=== PATIENT | female | born 1955 | race African-American/Black ===

== ENCOUNTER → 2017-04-08 | Outpatient (CLI) | payer OTHER ==
[2017-04-08 12:31] LABS: Basophils # (auto) 0 uL; Basophils % (auto) 0.5 % (0.0-2.0); CONDITION Y; Eosinophils # (auto) 0.1 uL; Eosinophils % (auto) 1.6 % (0.0-7.0); Hematocrit 43.3 % (36.0-46.0); Hemoglobin 14.4 g/dL (12.2-16.2); Lymphocytes # (auto) 2.3 uL; Mean Corpuscular Hemoglobin 29.9 pg (28.0-32.0); Mean Corpuscular Hgb Conc. 33.3 g/dL (32.0-36.0); Mean Corpuscular Volume 89.7 fL (80.0-100.0); Mean Platelet Volume 9.6 fL (6.9-10.8); Monocytes # (auto) 0.4 uL; Monocytes % (auto) 7.8 % (0.0-12.0); Neutrophils # (auto) 2.3 uL; Neutrophils % (auto) 45.1 % (37.0-80.0); Platelet Count (auto) 190 10^3/uL (140-450); White Blood Cell 5.1 10^3/uL (4.4-10.8)
[2017-04-08 12:39] LABS: Urine Bilirubin Negative (Negative); Urine Blood TRACE /uL (Negative); Urine Color Yellow (Yellow); Urine Glucose Normal (Normal); Urine Ketone Negative (Negative); Urine Nitrite Negative (Negative); Urine Urobilinogen Normal (Negative)
[2017-04-08 12:51] LABS: Albumin 3.8 g/dL (3.4-5.0); BUN/Creatinine Ratio 19.6; Bilirubin, Direct 0.2 mg/dL (0-0.2); Bilirubin, Total 0.4 mg/dL (0.2-1.0); Calcium 9.1 mg/dL (8.5-10.1); Total Protein 7.1 g/dL (6.4-8.2)
== END | disposition home or self-care (01) ==
LOC: LAB 09:02
PROVIDERS: ATTEND Internal Medicine Cardiovascular Disease
DX: I10 Essential (primary) hypertension (principal); E78.00 Pure hypercholesterolemia, unspecified; K74.1 Hepatic sclerosis; E11.9 Type 2 diabetes mellitus without complications; E03.9 Hypothyroidism, unspecified; D64.9 Anemia, unspecified; E55.9 Vitamin D deficiency, unspecified; N39.0 Urinary tract infection, site not specified
CPT/HCPCS: 36415; 80048; 80061; 80076; 81003; 82306; 83036; 84443; 85025

== ENCOUNTER → 2017-10-10 | Outpatient (CLI) | payer OTHER ==
[2017-10-10 16:18] LABS: Urine Blood TRACE /uL (Negative); Urine Specific Gravity 1.028 (1.001-1.035)
[2017-10-10 16:29] LABS: BUN/Creatinine Ratio 18.6; Bilirubin, Direct 0.1 mg/dL (0-0.2); Bilirubin, Total 0.6 mg/dL (0.2-1.0); Calcium 9.3 mg/dL (8.5-10.1); Potassium 3.9 mmol/L (3.5-5.1); Total Protein 8.4 g/dL (6.4-8.2)
[2017-10-10 16:48] LABS: Basophils # (auto) 0 uL; Basophils % (auto) 0.8 % (0.0-2.0); Eosinophils # (auto) 0.1 uL; Eosinophils % (auto) 1.9 % (0.0-7.0); Hemoglobin 14.8 g/dL (12.2-16.2); Lymphocytes # (auto) 2.1 uL; Lymphocytes % (auto) 37.6 % (10.0-50.0); Mean Corpuscular Hgb Conc. 32.8 g/dL (32.0-36.0); Mean Corpuscular Volume 91.5 fL (80.0-100.0); Monocytes # (auto) 0.6 uL; Monocytes % (auto) 10.8 % (0.0-12.0); Neutrophils # (auto) 2.7 uL; Neutrophils % (auto) 48.9 % (37.0-80.0); Nucleated Red Blood Cells % 0.5 %; Platelet Count (auto) 217 10^3/uL (140-450); Red Blood Cells 4.92 10^6/uL (4.0-5.20); Red Cell Distribution Width 14.5 % (11.8-14.3); White Blood Cell 5.5 10^3/uL (4.4-10.8)
== END | disposition home or self-care (01) ==
LOC: Rad HDHVI 11:45
PROVIDERS: ATTEND Internal Medicine Cardiovascular Disease
DX: I70.0 Atherosclerosis of aorta (principal); I10 Essential (primary) hypertension; E11.9 Type 2 diabetes mellitus without complications; D64.9 Anemia, unspecified; E78.5 Hyperlipidemia, unspecified; E03.9 Hypothyroidism, unspecified; E55.9 Vitamin D deficiency, unspecified; K74.1 Hepatic sclerosis; D51.9 Vitamin B12 deficiency anemia, unspecified; N39.0 Urinary tract infection, site not specified
CPT/HCPCS: 36415; 71046; 80048; 80061; 80076; 81003; 82306; 83036; 84443; 85025

== ENCOUNTER → 2018-06-05 | Outpatient (CLI) | payer OTHER ==
[2018-06-05 17:05] LABS: Basophils # (auto) 0 uL; Basophils % (auto) 0.5 % (0.0-2.0); Eosinophils # (auto) 0.1 uL; Eosinophils % (auto) 1.1 % (0.0-7.0); Hematocrit 42.7 % (36.0-46.0); Hemoglobin 14.1 g/dL (12.2-16.2); Lymphocytes # (auto) 1.9 uL; Lymphocytes % (auto) 41.8 % (10.0-50.0); Mean Corpuscular Hemoglobin 29.8 pg (28.0-32.0); Mean Corpuscular Hgb Conc. 32.9 g/dL (32.0-36.0); Mean Corpuscular Volume 90.4 fL (80.0-100.0); Monocytes # (auto) 0.4 uL; Neutrophils # (auto) 2.2 uL; Neutrophils % (auto) 48.6 % (37.0-80.0); Nucleated Red Blood Cells % 0.4 %; Platelet Count (auto) 176 10^3/uL (140-450); Red Blood Cells 4.72 10^6/uL (4.0-5.20); Red Cell Distribution Width 14.7 % (11.8-14.3); White Blood Cell 4.6 10^3/uL (4.4-10.8)
[2018-06-05 17:06] LABS: BUN/Creatinine Ratio 11.8; Calcium 8.9 mg/dL (8.5-10.1)
[2018-06-05 17:09] LABS: Bilirubin, Total 0.7 mg/dL (0.2-1.0); Total Protein 7.4 g/dL (6.4-8.2)
== END | disposition home or self-care (01) ==
LOC: LAB 13:47
PROVIDERS: ATTEND Internal Medicine
DX: I10 Essential (primary) hypertension (principal); E03.9 Hypothyroidism, unspecified; D64.9 Anemia, unspecified; R74.9 Abnormal serum enzyme level, unspecified
CPT/HCPCS: 36415; 80053; 82550; 84439; 84443; 85025

== ENCOUNTER → 2018-07-23 | Outpatient (CLI) | payer OTHER | END | disposition home or self-care (01) | LOC: Rad HDHVI 10:50 | PROVIDERS: ATTEND Internal Medicine | DX: J18.9 Pneumonia, unspecified organism (principal); R07.9 Chest pain, unspecified | CPT/HCPCS: 71046 ==

== ENCOUNTER → 2018-09-30 | Outpatient (CLI) | payer OTHER ==
[2018-09-30 12:13] LABS: Potassium 4.1 mmol/L (3.5-5.1)
[2018-09-30 12:18] LABS: Basophils # (auto) 0 uL; Basophils % (auto) 0.5 % (0.0-2.0); Eosinophils # (auto) 0.1 uL; Eosinophils % (auto) 1.8 % (0.0-7.0); Hematocrit 41.3 % (36.0-46.0); Hemoglobin 13.2 g/dL (12.2-16.2); Lymphocytes % (auto) 47.4 % (10.0-50.0); Mean Corpuscular Hemoglobin 29.2 pg (28.0-32.0); Mean Corpuscular Hgb Conc. 31.9 g/dL (32.0-36.0); Mean Corpuscular Volume 91.3 fL (80.0-100.0); Monocytes # (auto) 0.4 uL; Monocytes % (auto) 9.2 % (0.0-12.0); Neutrophils # (auto) 1.8 uL; Neutrophils % (auto) 41.1 % (37.0-80.0); Nucleated Red Blood Cells % 0.3 %; Platelet Count (auto) 176 10^3/uL (140-450); Red Blood Cells 4.52 10^6/uL (4.0-5.20); Red Cell Distribution Width 15.5 % (11.8-14.3); White Blood Cell 4.3 10^3/uL (4.4-10.8)
[2018-09-30 12:21] LABS: Albumin 3.7 g/dL (3.4-5.0); BUN/Creatinine Ratio 14.9; Bilirubin, Total 0.4 mg/dL (0.2-1.0); Calcium 8.7 mg/dL (8.5-10.1)
== END | disposition home or self-care (01) ==
LOC: LAB 08:58
PROVIDERS: ATTEND Internal Medicine
DX: E03.9 Hypothyroidism, unspecified (principal); D64.9 Anemia, unspecified; I10 Essential (primary) hypertension
CPT/HCPCS: 36415; 80053; 84443; 85025

== ENCOUNTER → 2019-05-13 | Outpatient (CLI) | payer OTHER ==
[2019-05-13 15:57] LABS: Urine Blood TRACE /uL (Negative); Urine Specific Gravity 1.025 (1.001-1.035)
== END | disposition home or self-care (01) ==
LOC: LAB 10:59
PROVIDERS: ATTEND Internal Medicine
DX: N39.0 Urinary tract infection, site not specified (principal)
CPT/HCPCS: 81003; 87086

== ENCOUNTER → 2019-05-22 | Outpatient (CLI) | payer OTHER ==
[~2019-05-22] MED LIST: BIOT2500 PO; CETI1TAB36 PO; CHOL1TAB42 PO; CLON0.1T PO; CLON0.2D6 PO; IOHEXOL 350 MG/ML 100ML IJ ONE; LOSA-39 PO
[2019-05-22 09:05] VITALS: BP 125/80
--- NOTE | 2019-05-22 09:05 | NUR ---
IV insertion IV access obtained, via clean sterile technique by inserting 22 gauge catheter at LAC after 1 attempt(s). IV secured properly. No trauma to site. Patient tolerated procedure well.
--- NOTE | 2019-05-22 11:03 | NUR ---
IV removal IV DC'd with sterile technique, catheter fully intact. Pressure dressing applied to site. Patient tolerated procedure well.
[2019-05-22 11:05] VITALS: BP 151/72
--- NOTE | 2019-05-22 11:05 | NUR ---
[facility] Discharge Instructions See e-MAR for any mediations given with this visit. Patient education given on disease process. Patient verbalized understanding. Previous labs reviewed. Patient discharged in stable condition with after care instructions and follow up appointment. NOTE PATIENT EDUCATED TO DRINK PLENTY OF FLUIDS OVER THE NEXT 24 HRS, PATIENT VERBALIZED UNDERSTANDING.
== END | disposition home or self-care (01) ==
LOC: Rad HDHVI 08:58
PROVIDERS: ATTEND Internal Medicine
DX: R16.0 Hepatomegaly, not elsewhere classified (principal); N85.2 Hypertrophy of uterus; M47.819 Spondylosis without myelopathy or radiculopathy, site unspecified; K44.9 Diaphragmatic hernia without obstruction or gangrene; K42.9 Umbilical hernia without obstruction or gangrene; K57.32 Diverticulitis of large intestine without perforation or abscess without bleeding; N85.9 Noninflammatory disorder of uterus, unspecified; Z88.0 Allergy status to penicillin; Z90.49 Acquired absence of other specified parts of digestive tract
CPT/HCPCS: 36415; 74177; 82565; G0463; Q9967

== ENCOUNTER 2019-06-03 10:12 | Inpatient (IN) | payer OTHER ==
[~2019-06-03] VITALS: Ht 165.1 cm; Wt 106.0 kg
[2019-06-03] MEDS ORDERED: NITROGLYCERIN 0.4 MG SL TAB SL PRN (10:45)
[2019-06-03] MEDS ORDERED: MORPHINE SULF INJ 2 MG/ML SYRINGE 1ML IV PRN (10:45)
--- NOTE | 2019-06-03 10:45 | NUR ---
DIRECT ADMIT Patient admitted to [facility] unit as a direct admit per Dr. Roosevelt PORTER, order. No S/S of distress/SOB, c/o abdominal pain 4/10 on adult pain scale but is not requesting pain medication at this time. Patient oriented to primary RN, unit, room, bed,unit policies regarding patient care and encouraged to call if they need something. All questions and concerns addressed, patient verbalized understanding.Bed in lowest, locked position with side rails up x2 and call light within reach. Will continue to monitor Q1hr/PRN.
[2019-06-03 11:24] VITALS: BP 162/105
[2019-06-03 11:25] VITALS: BP 152/110
[2019-06-03 11:34] LABS: Urine Bacteria NONE SEEN /hpf (None Seen); Urine Blood TRACE /uL (Negative); Urine Hyaline Cast FEW /lpf (0 - 2); Urine Mucus FEW (None Seen); Urine Specific Gravity 1.025 (1.001-1.035); Urine WBC 1 /hpf (0 - 5)
--- NOTE | 2019-06-03 11:36 | NUR ---
IV IV access obtained, via clean sterile technique by inserting 22 gauge catheter at left forearm after 3 attempts. IV secured properly. No trauma to site. Patient tolerated well.
[2019-06-03] MEDS ORDERED: LOSA-39 PO (11:50)
[2019-06-03] MEDS ORDERED: CETI1TAB36 PO (11:50)
[2019-06-03] MEDS ORDERED: CHOL1TAB42 PO (11:50)
[2019-06-03] MEDS ORDERED: BIOT2500 PO (11:50)
[2019-06-03] MEDS ORDERED: CLON0.2D6 PO (11:50)
[2019-06-03] MEDS ORDERED: CLON0.1T PO (11:50)
[2019-06-03] MEDS: SOD CHL 0.45% 1,000 ML IV SCH (12:30)
[2019-06-03 12:34] LABS: Basophils # (auto) 0 uL; Basophils % (auto) 1.1 % (0.0-2.0); Eosinophils # (auto) 0.1 uL; Eosinophils % (auto) 2.7 % (0.0-7.0); Hemoglobin 14.1 g/dL (12.2-16.2); Lymphocytes # (auto) 1.5 uL; Lymphocytes % (auto) 33.7 % (10.0-50.0); Mean Corpuscular Hemoglobin 29.3 pg (28.0-32.0); Mean Corpuscular Hgb Conc. 32.7 g/dL (32.0-36.0); Mean Corpuscular Volume 89.5 fL (80.0-100.0); Monocytes # (auto) 0.4 uL; Monocytes % (auto) 9.2 % (0.0-12.0); Neutrophils # (auto) 2.4 uL; Neutrophils % (auto) 53.3 % (37.0-80.0); Platelet Count (auto) 185 10^3/uL (140-450); White Blood Cell 4.5 10^3/uL (4.4-10.8)
--- NOTE | 2019-06-03 12:38 | NUR ---
ROUND Patient resting in bed, spouse at bedside. No S/S of distress noted. Patient states pain level 5/10, is not requesting pain medication at this time.
[2019-06-03] MEDS ORDERED: LOSARTAN POTASSIUM 50 MG TAB PO ONE (12:45)
[2019-06-03] MEDS ORDERED: CHOLECALCIFEROL (VITD3) 1,000 UNIT TAB PO ONE (12:45)
[2019-06-03 13:02] LABS: Albumin 4.1 g/dL (3.4-5.0); Calcium 9.2 mg/dL (8.5-10.1); Potassium 3.6 mmol/L (3.5-5.1)
[2019-06-03 13:06] LABS: BUN/Creatinine Ratio 29.1; Bilirubin, Total 0.8 mg/dL (0.2-1.0); Total Protein 6.8 g/dL (6.4-8.2)
[2019-06-03] MEDS: cloNIDine HCL 0.1 MG TAB PO SCH (13:16)
--- NOTE | 2019-06-03 14:33 | NUR ---
ROUNDS Patient resting in bed, spouse at bedside. No S/S of distress noted. Will continue to monitor.
--- NOTE | 2019-06-03 16:10 | NUR ---
AT BEDSIDE Dr. Albert at patient's bedside.
--- NOTE | 2019-06-03 16:35 | NUR ---
OFF UNIT Patient taken off unit via wheelchair for MRI. No S/S of distress noted.
[2019-06-03 17:00] VITALS: BP 126/89
[2019-06-03] MEDS ORDERED: amLODIPine BESYLATE 5 MG TAB PO ONE (17:15)
[2019-06-03] MEDS: MEPERIDINE HCL (25 MG/ML) 1ML VIAL IV PRN ×2 (17:44→22:45)
--- NOTE | 2019-06-03 19:20 | NUR ---
Opening shift note Assumed care of patient who is A&O x4. Currently on RA with no s/s of SOB or distress. Reports 3/10 abdominal pain; informed patient that pain medication is not due at this time and patient is aware. Patient is ambulatory without the use of assistive devices. IV in left forearm is infusing NS as ordered. Surrounding tissue is puffy and patient reports minor pain to area. Infusion stopped. Bed is in low locked position with side rails up x2. Call light is within reach and patient encouraged to call for assistance when needed. Will continue to monitor for changes PRN.
[2019-06-03 20:00] VITALS: BP 146/93
--- NOTE | 2019-06-03 21:08 | NUR ---
IV insertion IV access obtained, via clean sterile technique by inserting 22 gauge catheter at left wrist after 3 attempts. IV secured properly. No trauma to site. Patient tolerated well.
--- NOTE | 2019-06-03 21:12 | NUR ---
IV removal IV in left forearm DC'd with clean sterile technique, catheter fully intact. Pressure dressing applied to site. Patient tolerated well.
[2019-06-03 21:53] VITALS: BP 146/93
[2019-06-04] MEDS: SOD CHL 0.45% 1,000 ML IV SCH ×3 (00:05→21:14)
[2019-06-04] MEDS: MEPERIDINE HCL (25 MG/ML) 1ML VIAL IV PRN ×4 (02:52→17:59)
[2019-06-04 04:44] VITALS: BP 155/81
[2019-06-04] MEDS: cloNIDine HCL 0.1 MG TAB PO SCH (06:46)
--- NOTE | 2019-06-04 07:35 | NUR ---
OPENING NOTE Assumed care of patient from NOC RN, Alba. Patient awake and alert with no S/S of distress/SOB. C/O abdominal pain 3/10 on adult pain scale. Instructed on POC and to call for assistance PRN, verbalized understanding. Bed in lowest, locked position with side rails up x2 and call light within reach. Will continue to monitor for changes Q1hr and PRN.
[2019-06-04 09:12] VITALS: BP 159/79
[2019-06-04] MEDS ORDERED: ONDANSETRON HCL 4 MG/2 ML VIAL IV PRN (12:00)
[2019-06-04] MEDS ORDERED: PANTOPRAZOLE 40 MG TAB PO ONE (12:00)
[2019-06-04] MEDS ORDERED: OMNIPAQUE ORAL SOLN 500ml 12mg/ml PO ONE ×2 (12:12→12:15)
[2019-06-04] MEDS: LOSARTAN POTASSIUM 50 MG TAB PO SCH (12:13)
[2019-06-04] MEDS: HCTZ 25 MG TAB PO SCH (12:13)
[2019-06-04] MEDS: CHOLECALCIFEROL (VITD3) 1,000 UNIT TAB PO SCH (12:13)
[2019-06-04 12:55] VITALS: BP 143/76
[2019-06-04] MEDS ORDERED: IOHEXOL 300 MG/ML 100ML BOTTLE IJ ONE (14:10)
--- NOTE | 2019-06-04 14:12 | NUR ---
OFF UNIT Patient taken off unit via wheelchair for CT scan.
--- NOTE | 2019-06-04 14:42 | NUR ---
RETURN TO UNIT Patient returned to unit via wheelchair, no S/S of distress noted.
[2019-06-04 16:55] VITALS: BP 156/76
--- NOTE | 2019-06-04 19:22 | NUR ---
CLOSING NOTE Endorsed care of patient to NOC Alba FRENCH.
--- NOTE | 2019-06-04 19:25 | NUR ---
Opening shift note Assumed care of patient who is A&O x4. Currently on RA with no s/s of SOB or distress. Denies pain at this time. Patient is ambulatory without the use of assistive devices. IV in left wrist is infusing 0.45% NaCl as ordered. No s/s of irritation to site. Bed is in low locked position with side rails up x2. Call light is within reach and patient encouraged to call for assistance when needed. Will continue to monitor for changes PRN.
[2019-06-04 20:00] VITALS: BP 143/73
[2019-06-04 22:00] VITALS: BP 143/73
[2019-06-05] MEDS: MEPERIDINE HCL (25 MG/ML) 1ML VIAL IV PRN ×6 (00:46→23:43)
[2019-06-05 05:00] VITALS: BP 134/68
[2019-06-05 06:24] LABS: INR 1.12 (0.9-1.15); Partial Thromboplastin Time 34.2 sec (23.64-32.05)
[2019-06-05 06:32] LABS: Calcium 8.7 mg/dL (8.5-10.1); Potassium 3.3 mmol/L (3.5-5.1)
[2019-06-05 06:41] LABS: BUN/Creatinine Ratio 16.7
[2019-06-05 09:00] VITALS: BP 130/64
--- NOTE | 2019-06-05 09:15 | NUR ---
Patient in the bathroom.
[2019-06-05] MEDS: CHOLECALCIFEROL (VITD3) 1,000 UNIT TAB PO SCH (09:54)
--- NOTE | 2019-06-05 09:54 | NUR ---
Demerol Inj 12.5 mg given for stomach pain level at 4 to 5/10 as stated by the patient.
[2019-06-05] MEDS: PANTOPRAZOLE 40 MG TAB PO SCH (09:55)
[2019-06-05] MEDS: LOSARTAN POTASSIUM 50 MG TAB PO SCH (09:55)
[2019-06-05] MEDS: HCTZ 25 MG TAB PO SCH (09:56)
--- NOTE | 2019-06-05 10:00 | NUR ---
GI Consult called in again by Unit Addie Marie.
--- NOTE | 2019-06-05 11:36 | NUR ---
Dr. Bains came over. ordered to follow up with Dylan Choudhury for GI Consult.
--- NOTE | 2019-06-05 11:44 | NUR ---
Dr. Bains made aware patient's BP >170. ordered Clonidine 0.1 mg Q6 PRN for SBP>160.
[2019-06-05] MEDS ORDERED: cloNIDine HCL 0.1 MG TAB PO PRN ×2 (11:45→12:00)
--- NOTE | 2019-06-05 11:45 | NUR ---
Received a call from Ultrasound o let the patient hold her bladder when she has the urge to urinate. Patient made aware.
--- NOTE | 2019-06-05 11:56 | NUR ---
Called Ultrasound that patient got full bladder. [employer] to come over to pick up attendant the patient.
--- NOTE | 2019-06-05 12:18 | NUR ---
Dylan Choudhury came over for GI Consult. to put in new orders.
--- NOTE | 2019-06-05 12:20 | NUR ---
Dr. Torrez at bedside for OB-Gyne Consult. [employer] Floor Walker at bedside.
[2019-06-05] MEDS ORDERED: LACTULOSE 20Gm/30ML SOLN PO PRN (12:30)
[2019-06-05 13:00] VITALS: BP 174/84
--- NOTE | 2019-06-05 14:33 | NUR ---
Demerol Inj 12.5 mg given for pain level at 6/10 as stated by the patient.
--- NOTE | 2019-06-05 14:41 | NUR ---
Paged the PICC Line RN.
--- NOTE | 2019-06-05 15:39 | NUR ---
Midline Placement: Patient educated on need for midline placement. All risks and benefits explained and all questions and concerns addresses prior to procedure. 18g/10cm midline inserted via left basilic vein using Ultrasound. Sterile technique utilized. Blood return obtained from lumen and flushed easily with NS using proper technique. Midline secured with saline lock; biodisc and occlusive dressing applied. Primary RN notified. Midline lot #[id number]
[2019-06-05 17:00] VITALS: BP 143/84
[2019-06-05] MEDS: HYOSCYAMINE SULF 0.125 MG ODT TAB PO PRN (20:16)
[2019-06-05 22:13] VITALS: BP 145/82
[2019-06-06 05:16] VITALS: BP 155/89
--- NOTE | 2019-06-06 07:40 | NUR ---
Opening Shift Note Assumed care of patient, awake and alert. No S/S of distress/SOB. Patient is reporting abdominal discomfort, will medicate per MD order. Bed is in lowest position with 2x side rails up for safety, and call light is within reach. Instructed on POC and to call for assist PRN, will continue to monitor for changes Q1hr and PRN.
--- NOTE | 2019-06-06 07:50 | NUR ---
Dr. Torrez at bedside for OB-Gyne follow up consult.
[2019-06-06 08:00] VITALS: BP 110/73
[2019-06-06] MEDS: HYOSCYAMINE SULF 0.125 MG ODT TAB PO PRN ×2 (08:23→20:38)
--- NOTE | 2019-06-06 08:23 | NUR ---
Patient stated her stomach hurts, refused Demerol at this time. Hyoscyamine oral tablets given for stomach distress as ordered.
[2019-06-06 09:00] VITALS: BP 110/73
[2019-06-06] MEDS: CHOLECALCIFEROL (VITD3) 1,000 UNIT TAB PO SCH (10:25)
[2019-06-06] MEDS: PANTOPRAZOLE 40 MG TAB PO SCH (10:25)
[2019-06-06] MEDS: LOSARTAN POTASSIUM 50 MG TAB PO SCH (10:26)
[2019-06-06] MEDS: HCTZ 25 MG TAB PO SCH (10:26)
[2019-06-06 13:00] VITALS: BP 134/76
[2019-06-06 17:15] VITALS: BP 139/84
--- NOTE | 2019-06-06 18:55 | NUR ---
Dr. Molina at bedside.
[2019-06-06 21:41] VITALS: BP 132/72
[2019-06-07 05:36] VITALS: BP 113/69
[2019-06-07 05:49] LABS: Basophils # (auto) 0 uL; Basophils % (auto) 0.5 % (0.0-2.0); Eosinophils # (auto) 0.1 uL; Eosinophils % (auto) 2.1 % (0.0-7.0); Hematocrit 46.1 % (36.0-46.0); Hemoglobin 15.4 g/dL (12.2-16.2); Lymphocytes # (auto) 1.8 uL; Lymphocytes % (auto) 44.3 % (10.0-50.0); Mean Corpuscular Hemoglobin 29.6 pg (28.0-32.0); Mean Corpuscular Hgb Conc. 33.5 g/dL (32.0-36.0); Mean Corpuscular Volume 88.6 fL (80.0-100.0); Monocytes # (auto) 0.4 uL; Monocytes % (auto) 11.2 % (0.0-12.0); Neutrophils # (auto) 1.7 uL; Neutrophils % (auto) 41.9 % (37.0-80.0); Nucleated Red Blood Cells % 0.1 %; Platelet Count (auto) 184 10^3/uL (140-450); Red Cell Distribution Width 14.8 % (11.8-14.3)
--- NOTE | 2019-06-07 07:30 | NUR ---
Opening Shift Note Assumed care of patient, alert and oriented x4. No S/S of distress/SOB or pain. Bed is in the lowest position with 2x side rails up for safety. Call light is within reach. Instructed on POC and to call for assist PRN, will continue to monitor for changes Q1hr and PRN.
[2019-06-07 08:00] VITALS: BP 113/69
[2019-06-07 09:00] VITALS: BP 148/87
[2019-06-07] MEDS: CHOLECALCIFEROL (VITD3) 1,000 UNIT TAB PO SCH (09:43)
[2019-06-07] MEDS: LOSARTAN POTASSIUM 50 MG TAB PO SCH (09:43)
[2019-06-07] MEDS: HCTZ 25 MG TAB PO SCH (09:43)
[2019-06-07] MEDS: PANTOPRAZOLE 40 MG TAB PO SCH (09:43)
[2019-06-07] MEDS ORDERED: GOLYTELY 4L KIT PO ONE (12:00)
--- NOTE | 2019-06-07 12:28 | NUR ---
Dr. Molina at bedside.
[2019-06-07 13:00] VITALS: BP 113/85
--- NOTE | 2019-06-07 16:05 | NUR ---
NUTRITION ASSESSMENT NOTES Please refer to link notes of nutrition screen form filed under the intervention section of the plan of care for further details. Est. Needs: 1600 kcal to 2100 kcal (15-20 kcal/kgBW), 57 gms to 68 gms pro (1.0-1.2 gms/kgIBW: 57 kg). Will continue to monitor pertinent labs and reassess nutrient need prn Thank you. Addendum: 06/07/19 at [address] Amended: Links added.
[2019-06-07 17:00] VITALS: BP 120/86
[2019-06-07 21:58] VITALS: BP 140/88
[2019-06-08] MEDS ORDERED: GOLYTELY 4L KIT PO ONE (04:00)
[2019-06-08 05:33] VITALS: BP 151/82
[2019-06-08] MEDS ORDERED: SODIUM CHLORIDE 0.9% 1,000 ML IV SCH (06:00)
--- NOTE | 2019-06-08 07:40 | NUR ---
Opening Note Received report on the patient. Awake lying in bed. Patient shows no signs of distress at this time. Discussed plan of care with the patient. Bed is in the lowest position, side rails up x2, and the call light is within reach. Will continue to monitor.
[2019-06-08 08:15] VITALS: BP 148/87
[2019-06-08] MEDS ORDERED: SODIUM CHLORIDE LOCK 10 ML ONE (08:15)
[2019-06-08] MEDS ORDERED: diphenhdrAMINE HCL 50 MG/1 ML VL ONE (08:16)
[2019-06-08 09:00] VITALS: BP 147/64
[2019-06-08] MEDS: MIDAZOLAM HCL 5 MG/ML-1ML VIAL ONE ×3 (10:06→10:13)
[2019-06-08] MEDS: fentaNYL CITRATE 100 MCG/2 ML VL ONE ×3 (10:06→10:13)
--- NOTE | 2019-06-08 10:06 | NUR ---
Pre-Op Patient down to pre-op. No signs of distress at this time.
[2019-06-08] MEDS ORDERED: MIDAZOLAM HCL 5 MG/ML-1ML VIAL ONE (10:16)
[2019-06-08] MEDS ORDERED: fentaNYL CITRATE 100 MCG/2 ML VL ONE (10:16)
[2019-06-08] MEDS: LOSARTAN POTASSIUM 50 MG TAB PO SCH (12:01)
[2019-06-08] MEDS: CHOLECALCIFEROL (VITD3) 1,000 UNIT TAB PO SCH (12:02)
[2019-06-08] MEDS: PANTOPRAZOLE 40 MG TAB PO SCH (12:02)
[2019-06-08] MEDS: HCTZ 25 MG TAB PO SCH (12:02)
[2019-06-08 13:00] VITALS: BP 147/64
== END 2019-06-08 13:48 | disposition home or self-care (01) | DRG 392 ==
LOC: EAST 10:12 → UNDOADMIN 10:12 → EAST 14:58
PROVIDERS: ADMIT Internal Medicine; ATTEND Internal Medicine
PROC: 0DBN8ZX Excision of Sigmoid Colon, Via Natural or Artificial Opening Endoscopic, Diagnostic (ICD-10-PCS; principal; 2019-06-08 10:03)
DX: K57.30 Diverticulosis of large intestine without perforation or abscess without bleeding (principal); D25.9 Leiomyoma of uterus, unspecified; K58.9 Irritable bowel syndrome, unspecified; I10 Essential (primary) hypertension; E66.01 Morbid (severe) obesity due to excess calories; E78.5 Hyperlipidemia, unspecified; F10.10 Alcohol abuse, uncomplicated; F17.210 Nicotine dependence, cigarettes, uncomplicated; K63.5 Polyp of colon; M48.061 Spinal stenosis, lumbar region without neurogenic claudication; Z80.3 Family history of malignant neoplasm of breast; Z82.49 Family history of ischemic heart disease and other diseases of the circulatory system; Z83.3 Family history of diabetes mellitus; Z90.49 Acquired absence of other specified parts of digestive tract; Z79.899 Other long term (current) drug therapy; Z68.38 Body mass index [BMI] 38.0-38.9, adult; Y90.9 Presence of alcohol in blood, level not specified
CPT/HCPCS: 36415; 45380; 71045; 72148; 74177; 76856; 80048; 80053; 80061; 81001; 82150; 83690; 84132; 84443; 85025; 85610; 85652; 85730; 86431; 87040; 93005; G0378; J2250

== ENCOUNTER → 2020-03-22 | Outpatient (CLI) | payer OTHER ==
[~2020-03-22] MED LIST changes: -CLON0.2D6 PO; -IOHEXOL 350 MG/ML 100ML IJ ONE
[2020-03-22 12:11] LABS: Basophils # (auto) 0 10 ^3/uL (0-0.2); Basophils % (auto) 0.4 % (0.0-2.0); Eosinophils # (auto) 0.1 10 ^3/uL (0-0.8); Hematocrit 41.4 % (36.0-46.0); Hemoglobin 13.4 g/dL (12.2-16.2); Lymphocytes # (auto) 2.6 10 ^3/uL (0.4-5.4); Lymphocytes % (auto) 49.5 % (10.0-50.0); Mean Corpuscular Hemoglobin 29.5 pg (28.0-32.0); Mean Corpuscular Hgb Conc. 32.4 g/dL (32.0-36.0); Mean Corpuscular Volume 91.1 fL (80.0-100.0); Monocytes # (auto) 0.4 10 ^3/uL (0-1.3); Monocytes % (auto) 7.2 % (0.0-12.0); Neutrophils # (auto) 2.1 10 ^3/uL (1.6-8.6); Neutrophils % (auto) 40.9 % (37.0-80.0); Nucleated Red Blood Cells % 0.3 %; Platelet Count (auto) 208 10^3/uL (140-450); Red Blood Cells 4.55 10^6/uL (4.0-5.20); Red Cell Distribution Width 15.3 % (11.8-14.3); White Blood Cell 5.2 10^3/uL (4.4-10.8)
[2020-03-22 12:13] LABS: Urine Blood TRACE /uL (Negative); Urine Specific Gravity 1.021 (1.001-1.035)
[2020-03-22 12:21] LABS: Potassium 3.9 mmol/L (3.5-5.1)
[2020-03-22 12:30] LABS: Albumin 3.7 g/dL (3.4-5.0); BUN/Creatinine Ratio 17.1; Bilirubin, Total 0.6 mg/dL (0.2-1.0); Calcium 8.9 mg/dL (8.5-10.1); Total Protein 7.1 g/dL (6.4-8.2)
[2020-03-22 12:31] LABS: Free T4 (Free Thyroxine) 0.93 ng/dL (0.89-1.76)
== END | disposition home or self-care (01) ==
LOC: LAB 08:58
PROVIDERS: ATTEND Internal Medicine
DX: Z00.00 Encounter for general adult medical examination without abnormal findings (principal); E03.9 Hypothyroidism, unspecified; K90.9 Intestinal malabsorption, unspecified; N39.0 Urinary tract infection, site not specified; D51.9 Vitamin B12 deficiency anemia, unspecified; I10 Essential (primary) hypertension; D64.9 Anemia, unspecified; E78.5 Hyperlipidemia, unspecified; E55.9 Vitamin D deficiency, unspecified; E11.9 Type 2 diabetes mellitus without complications; Z79.899 Other long term (current) drug therapy
CPT/HCPCS: 36415; 80053; 80061; 81003; 82306; 82607; 83036; 84439; 84443; 85025

== ENCOUNTER → 2022-03-22 | Outpatient (CLI) | payer MEDICARE, OTHER ==
[2022-03-22 12:03] LABS: Basophils # (auto) 0 10 ^3/uL (0-0.2); Basophils % (auto) 0.5 % (0.0-2.0); Eosinophils # (auto) 0.1 10 ^3/uL (0-0.8); Eosinophils % (auto) 1.7 % (0.0-7.0); Hematocrit 43.3 % (36.0-46.0); Hemoglobin 13.9 g/dL (12.2-16.2); Lymphocytes # (auto) 2.3 10 ^3/uL (0.4-5.4); Mean Corpuscular Hemoglobin 28.4 pg (28.0-32.0); Mean Corpuscular Volume 88.8 fL (80.0-100.0); Monocytes # (auto) 0.4 10 ^3/uL (0-1.3); Monocytes % (auto) 8.5 % (0.0-12.0); Neutrophils # (auto) 1.8 10 ^3/uL (1.6-8.6); Neutrophils % (auto) 39.3 % (37.0-80.0); Nucleated Red Blood Cells % 0.2 %; Red Blood Cells 4.88 10^6/uL (4.0-5.20); Red Cell Distribution Width 14.3 % (11.8-14.3); White Blood Cell 4.5 10^3/uL (4.4-10.8)
[2022-03-22 12:14] LABS: Albumin 3.7 g/dL (3.4-5.0); Calcium 9.4 mg/dL (8.5-10.1); Potassium 3.9 mmol/L (3.5-5.1)
[2022-03-22 12:21] LABS: BUN/Creatinine Ratio 15.7; Bilirubin, Total 0.4 mg/dL (0.2-1.0)
[2022-03-22 12:28] LABS: Free T4 (Free Thyroxine) 1.17 ng/dL (0.89-1.76)
[2022-03-22 12:30] LABS: Urine Blood Negative /uL (Negative); Urine Specific Gravity 1.003 (1.001-1.035)
[2022-03-22 12:32] LABS: INR 1.02 (0.9-1.15); Partial Thromboplastin Time 37.3 sec (24.6-33.4)
== END | disposition home or self-care (01) ==
LOC: LAB 08:01
PROVIDERS: ATTEND Internal Medicine
DX: R79.1 Abnormal coagulation profile (principal); I10 Essential (primary) hypertension; E55.9 Vitamin D deficiency, unspecified; D51.3 Other dietary vitamin B12 deficiency anemia; D64.9 Anemia, unspecified; E11.9 Type 2 diabetes mellitus without complications; R00.2 Palpitations; R53.1 Weakness; R30.0 Dysuria
CPT/HCPCS: 36415; 80053; 80061; 81003; 82306; 82607; 83036; 84439; 84443; 85025; 85610; 85730

== ENCOUNTER → 2022-11-02 | Outpatient (CLI) | payer MEDICARE, OTHER ==
[2022-11-02 10:16] LABS: Urine Blood TRACE /uL (Negative); Urine Specific Gravity 1.013 (1.001-1.035)
[2022-11-02 10:24] LABS: Basophils # (auto) 0 10 ^3/uL (0-0.2); Basophils % (auto) 0.2 % (0.0-2.0); Eosinophils # (auto) 0.1 10 ^3/uL (0-0.8); Hematocrit 41.5 % (36.0-46.0); Hemoglobin 13.8 g/dL (12.2-16.2); Lymphocytes % (auto) 44.5 % (10.0-50.0); Mean Corpuscular Hgb Conc. 33.4 g/dL (32.0-36.0); Mean Corpuscular Volume 89.7 fL (80.0-100.0); Monocytes # (auto) 0.4 10 ^3/uL (0-1.3); Monocytes % (auto) 8.1 % (0.0-12.0); Neutrophils # (auto) 2.1 10 ^3/uL (1.6-8.6); Neutrophils % (auto) 45.2 % (37.0-80.0); Nucleated Red Blood Cells % 0.1 %; Red Blood Cells 4.62 10^6/uL (4.0-5.20); Red Cell Distribution Width 14.9 % (11.8-14.3); White Blood Cell 4.5 10^3/uL (4.4-10.8)
[2022-11-02 10:52] LABS: BUN/Creatinine Ratio 18.6 (10.0-20.0); Calcium 8.8 mg/dL (8.5-10.1); Potassium 3.8 mmol/L (3.5-5.1)
[2022-11-02 10:57] LABS: Albumin 3.3 g/dL (3.4-5.0); Bilirubin, Total 0.6 mg/dL (0.2-1.0); Total Protein 6.7 g/dL (6.4-8.2)
== END | disposition home or self-care (01) ==
LOC: LAB 09:41
PROVIDERS: ATTEND Internal Medicine
DX: I10 Essential (primary) hypertension (principal); D51.9 Vitamin B12 deficiency anemia, unspecified; E78.5 Hyperlipidemia, unspecified; D64.9 Anemia, unspecified; E11.9 Type 2 diabetes mellitus without complications
CPT/HCPCS: 36415; 80053; 80061; 81003; 83036; 84439; 84443; 85025

== ENCOUNTER → 2022-11-13 | Outpatient (CLI) | payer MEDICARE, OTHER | END | disposition home or self-care (01) | LOC: Rad HDHVI 13:55 | PROVIDERS: ATTEND Internal Medicine Cardiovascular Disease | DX: I08.1 Rheumatic disorders of both mitral and tricuspid valves (principal); R06.02 Shortness of breath; I10 Essential (primary) hypertension; E78.5 Hyperlipidemia, unspecified; M51.34 Other intervertebral disc degeneration, thoracic region | CPT/HCPCS: 71046; 93306 ==

== ENCOUNTER → 2022-11-27 | Outpatient (CLI) | payer MEDICARE, OTHER ==
[~2022-11-27] VITALS: Ht 165.1 cm; Wt 92.5 kg
== END | disposition home or self-care (01) ==
LOC: Rad HDHVI 12:56
PROVIDERS: ATTEND Internal Medicine Cardiovascular Disease
DX: J44.9 Chronic obstructive pulmonary disease, unspecified (principal); I10 Essential (primary) hypertension; E78.5 Hyperlipidemia, unspecified; E66.9 Obesity, unspecified; F17.210 Nicotine dependence, cigarettes, uncomplicated; Z82.49 Family history of ischemic heart disease and other diseases of the circulatory system
CPT/HCPCS: 78452; 93017; 96374; A9500

== ENCOUNTER → 2023-07-19 | Outpatient (CLI) | payer MEDICARE, OTHER ==
[~2023-07-19] MED LIST changes: -LOSA-39 PO; +LOSA100T58 PO
[2023-07-19 09:46] LABS: Basophils # (auto) 0 10 ^3/uL (0-0.2); Basophils % (auto) 0.4 % (0.0-2.0); Eosinophils # (auto) 0.1 10 ^3/uL (0-0.8); Eosinophils % (auto) 1.8 % (0.0-7.0); Hematocrit 46.9 % (36.0-46.0); Hemoglobin 15.5 g/dL (12.2-16.2); Lymphocytes # (auto) 2.7 10 ^3/uL (0.4-5.4); Lymphocytes % (auto) 49.3 % (10.0-50.0); Mean Corpuscular Hemoglobin 29.9 pg (28.0-32.0); Mean Corpuscular Volume 90.5 fL (80.0-100.0); Monocytes # (auto) 0.5 10 ^3/uL (0-1.3); Monocytes % (auto) 8.4 % (0.0-12.0); Neutrophils # (auto) 2.2 10 ^3/uL (1.6-8.6); Neutrophils % (auto) 40.1 % (37.0-80.0); Nucleated Red Blood Cells % 0.1 %; Red Blood Cells 5.17 10^6/uL (4.0-5.20); Red Cell Distribution Width 14.9 % (11.8-14.3); White Blood Cell 5.4 10^3/uL (4.4-10.8)
[2023-07-19 11:02] LABS: Alanine Aminotransferase 34 U/L (7-40); Alkaline Phosphatase 99 U/L (46-116); Anion Gap 6 (5-15); BUN/Creatinine Ratio 16.4 (10.0-20.0); Blood Urea Nitrogen 12 mg/dL (9-23); Calcium 9.6 mg/dL (8.5-10.1); Carbon Dioxide 28 mmol/L (20-30); Chloride 105 mmol/L (98-107); Glucose 105 mg/dL (74-106); LDL Cholesterol 121 mg/dL (< 100); Potassium 4.6 mmol/L (3.5-5.1); Sodium 139 mmol/L (136-145); Triglycerides 65 mg/dL (< 150)
[2023-07-19 11:03] LABS: Albumin 4.7 g/dL (3.2-4.8); Aspartate Aminotransferase 10 U/L (13-40); Bilirubin, Direct 0.2 mg/dL (<0.3); Cholesterol 203 mg/dL (< 200); HDL Cholesterol 78 mg/dL (40-59)
[2023-07-19 11:04] LABS: Bilirubin, Total 0.5 mg/dL (0.2-1.0)
== END | disposition home or self-care (01) ==
LOC: LAB 09:22
PROVIDERS: ATTEND Internal Medicine Cardiovascular Disease
DX: E11.9 Type 2 diabetes mellitus without complications (principal); E55.9 Vitamin D deficiency, unspecified; R00.2 Palpitations; D51.3 Other dietary vitamin B12 deficiency anemia; I10 Essential (primary) hypertension; R53.1 Weakness; R30.0 Dysuria; D64.9 Anemia, unspecified
CPT/HCPCS: 36415; 80053; 80061; 80076; 82306; 83036; 84443; 85025; 87086

== ENCOUNTER 2023-11-20 08:08 | Inpatient (IN) | payer MEDICARE, OTHER ==
[~2023-11-20] VITALS: Ht 165.1 cm; Wt 100.3 kg
[~2023-11-20 08:08] MED LIST changes: +LOSA-535 PO; -LOSA100T58 PO
[2023-11-20 08:37] LABS: Urine Bacteria None Seen /hpf (None Seen)
[2023-11-20 08:51] LABS: Urine Blood TRACE /uL (Negative); Urine Clarity Clear (Clear); Urine Color Yellow (Yellow); Urine Mucus FEW (None Seen); Urine Protein, UAD TRACE (Negative); Urine Specific Gravity 1.028 (1.001-1.035); Urine Urobilinogen 2 mg/dL (Negative); Urine WBC 1 /hpf (0 - 5)
[2023-11-20 09:16] LABS: Basophils # (auto) 0 10 ^3/uL (0-0.2); Basophils % (auto) 0.7 % (0.0-2.0); Eosinophils # (auto) 0.1 10 ^3/uL (0-0.8); Eosinophils % (auto) 1.3 % (0.0-7.0); Hemoglobin 15.3 g/dL (12.2-16.2); Lymphocytes % (auto) 40.2 % (10.0-50.0); Mean Corpuscular Hemoglobin 30.3 pg (28.0-32.0); Mean Corpuscular Hgb Conc. 32.5 g/dL (32.0-36.0); Mean Corpuscular Volume 93.2 fL (80.0-100.0); Monocytes # (auto) 0.3 10 ^3/uL (0-1.3); Monocytes % (auto) 5.9 % (0.0-12.0); Neutrophils # (auto) 2.6 10 ^3/uL (1.6-8.6); Neutrophils % (auto) 51.9 % (37.0-80.0); Nucleated Red Blood Cells % 0.3 %; Red Blood Cells 5.04 10^6/uL (4.0-5.20); Red Cell Distribution Width 14.1 % (11.8-14.3)
[2023-11-20 09:34] LABS: Alanine Aminotransferase 10 U/L (7-40); Alkaline Phosphatase 71 U/L (46-116); Anion Gap 5 (5-15); Aspartate Aminotransferase 18 U/L (13-40); BUN/Creatinine Ratio 14.1 (10.0-20.0); Bilirubin, Total 0.6 mg/dL (0.2-1.0); Blood Urea Nitrogen 10 mg/dL (9-23); Carbon Dioxide 27 mmol/L (20-30); Chloride 109 mmol/L (98-107); Glucose 108 mg/dL (74-106); Potassium 4.3 mmol/L (3.5-5.1); Sodium 141 mmol/L (136-145); Total Protein 7.5 g/dL (5.7-8.2)
[2023-11-20] MEDS ORDERED: SODIUM CHLORIDE 0.9% 1,000 ML IV ONE (10:30)
[2023-11-20 10:32] LABS: Lipase 46 U/L (12-53)
[2023-11-20] MEDS ORDERED: DOCUSATE SOD 100 MG CAP PO PRN (12:00)
[2023-11-20] MEDS ORDERED: MORPHINE SULFATE INJ 2 MG/ml SYRG IV PRN (12:00)
[2023-11-20] MEDS: KETOROLAC TROMETH 30 MG/ML 1ML VIAL IV ONE (13:15)
[2023-11-20 17:00] VITALS: PULSE 82; RESP 16; O2SAT 94
[2023-11-20] MEDS: SODIUM CHLORIDE 0.9% 1,000 ML IV SCH (17:33)
[2023-11-20] MEDS: DICYCLOMINE HCL 10 MG CAP PO SCH (17:34)
[2023-11-20 19:57] VITALS: PULSE 76; RESP 12; O2SAT 93
[2023-11-20] MEDS: cloNIDine HCL 0.1 MG TAB PO PRN (22:20)
[2023-11-21] VITALS (7 sets, daily range): BP systolic 120–159; BP diastolic 73–83; PULSE 59–70; RESP 18–20; TEMP 96.1–98.2; O2SAT 97–100
[2023-11-21] MEDS ORDERED: LOVA20TA4 PO (01:06)
[2023-11-21] MEDS ORDERED: ALPR0.255 PO (01:06)
[2023-11-21 06:54] LABS: Basophils # (auto) 0 10 ^3/uL (0-0.2); Basophils % (auto) 0.4 % (0.0-2.0); Eosinophils # (auto) 0.1 10 ^3/uL (0-0.8); Eosinophils % (auto) 2.1 % (0.0-7.0); Hematocrit 40.2 % (36.0-46.0); Hemoglobin 12.9 g/dL (12.2-16.2); Lymphocytes % (auto) 43.3 % (10.0-50.0); Mean Corpuscular Hemoglobin 29.9 pg (28.0-32.0); Mean Corpuscular Hgb Conc. 32.1 g/dL (32.0-36.0); Mean Corpuscular Volume 93.1 fL (80.0-100.0); Monocytes # (auto) 0.4 10 ^3/uL (0-1.3); Monocytes % (auto) 8.5 % (0.0-12.0); Neutrophils # (auto) 2.1 10 ^3/uL (1.6-8.6); Neutrophils % (auto) 45.7 % (37.0-80.0); Nucleated Red Blood Cells % 0.1 %; Red Blood Cells 4.32 10^6/uL (4.0-5.20); Red Cell Distribution Width 14.3 % (11.8-14.3); White Blood Cell 4.6 10^3/uL (4.4-10.8)
[2023-11-21 07:11] LABS: Albumin 3.9 g/dL (3.2-4.8); Alkaline Phosphatase 47 U/L (46-116); Anion Gap 5 (5-15); Aspartate Aminotransferase 10 U/L (13-40); BUN/Creatinine Ratio 13.3 (10.0-20.0); Blood Urea Nitrogen 8 mg/dL (9-23); Calcium 9.2 mg/dL (8.7-10.4); Carbon Dioxide 26 mmol/L (20-30); Chloride 110 mmol/L (98-107); Glucose 96 mg/dL (74-106); Potassium 3.8 mmol/L (3.5-5.1); Sodium 141 mmol/L (136-145)
[2023-11-21 07:12] LABS: Bilirubin, Total 0.9 mg/dL (0.2-1.0); Total Protein 5.8 g/dL (5.7-8.2)
[2023-11-21 07:28] LABS: Alanine Aminotransferase 9 U/L (7-40)
[2023-11-21] MEDS ORDERED: Losartan Potassium 100 MG PO SCH (10:00)
[2023-11-21] MEDS: LOSARTAN POTASSIUM 50 MG TAB PO SCH (10:26)
[2023-11-21] MEDS: ALPRAZolam 0.25 MG TAB PO SCH (11:27)
[2023-11-21 16:20] LABS: Triglycerides 81 mg/dL (< 150)
[2023-11-21 16:21] LABS: LDL Cholesterol 74 mg/dL (< 100)
[2023-11-21 16:22] LABS: Cholesterol 154 mg/dL (< 200); HDL Cholesterol 63 mg/dL (40-59)
[2023-11-21] MEDS ORDERED: LOSA-534 PO (17:13)
[2023-11-21] MEDS ORDERED: SACU1TAB PO (17:15)
[2023-11-21] MEDS ORDERED: ACETAMINOPHEN 325 MG TAB PO PRN (17:30)
[2023-11-21] MEDS ORDERED: HYDROcodone-ACET 10/325MG TAB PO PRN (17:30)
[2023-11-21] MEDS: HYDROcodone-ACET 5/325MG TAB PO PRN (18:36)
[2023-11-21] MEDS: PRAVASTATIN SODIUM 20 MG TAB PO SCH (21:23)
[2023-11-21] MEDS: hydrALAZINE HCL 20 MG/ML VL IV PRN (21:24)
[2023-11-21] MEDS: ONDANSETRON HCL 4 MG/2 ML VIAL IV PRN (21:34)
[2023-11-22 00:48] VITALS: BP 101/57; PULSE 74; RESP 18; TEMP 97.9; O2SAT 96
[2023-11-22 05:00] VITALS: BP 120/67; PULSE 69; RESP 18; TEMP 97.7; O2SAT 95
[2023-11-22 06:39] LABS: Calcium 9.5 mg/dL (8.7-10.4); Carbon Dioxide 27 mmol/L (20-30); Chloride 109 mmol/L (98-107)
[2023-11-22 06:40] LABS: Anion Gap 6 (5-15); Sodium 142 mmol/L (136-145)
[2023-11-22 06:45] LABS: Glucose 94 mg/dL (74-106)
[2023-11-22 06:46] LABS: Blood Urea Nitrogen 6 mg/dL (9-23)
[2023-11-22 07:13] LABS: Basophils # (auto) 0 10 ^3/uL (0-0.2); Basophils % (auto) 0.3 % (0.0-2.0); Eosinophils # (auto) 0.1 10 ^3/uL (0-0.8); Eosinophils % (auto) 2.2 % (0.0-7.0); Hematocrit 42.5 % (36.0-46.0); Hemoglobin 13.6 g/dL (12.2-16.2); Lymphocytes % (auto) 38.3 % (10.0-50.0); Mean Corpuscular Hemoglobin 29.5 pg (28.0-32.0); Mean Corpuscular Volume 92.4 fL (80.0-100.0); Monocytes # (auto) 0.2 10 ^3/uL (0-1.3); Monocytes % (auto) 7.7 % (0.0-12.0); Neutrophils # (auto) 1.4 10 ^3/uL (1.6-8.6); Neutrophils % (auto) 51.5 % (37.0-80.0); Nucleated Red Blood Cells % 0.3 %; Red Blood Cells 4.59 10^6/uL (4.0-5.20); Red Cell Distribution Width 13.9 % (11.8-14.3); White Blood Cell 2.7 10^3/uL (4.4-10.8)
[2023-11-22 08:00] VITALS: BP 159/79; PULSE 102; RESP 18; TEMP 98; O2SAT 90
[2023-11-22 12:00] VITALS: BP 120/59; PULSE 59; RESP 16; TEMP 98.2; O2SAT 96
[2023-11-22 16:00] VITALS: BP 146/70; PULSE 71; RESP 16; TEMP 98.1; O2SAT 95
[2023-11-22 17:24] VITALS: BP 159/79; TEMP 36.7
== END 2023-11-22 17:42 | disposition home or self-care (01) | DRG 392 ==
LOC: ER 08:08 → OVERFLOW 13:46 → WEST WING 23:31
PROVIDERS: ADMIT Internal Medicine; ATTEND Internal Medicine
DX: K57.30 Diverticulosis of large intestine without perforation or abscess without bleeding (principal); D25.9 Leiomyoma of uterus, unspecified; I10 Essential (primary) hypertension; F17.210 Nicotine dependence, cigarettes, uncomplicated; R16.0 Hepatomegaly, not elsewhere classified; E78.5 Hyperlipidemia, unspecified; K37 Unspecified appendicitis; Z88.0 Allergy status to penicillin; Z87.19 Personal history of other diseases of the digestive system
CPT/HCPCS: 36415; 74176; 80048; 80053; 80061; 81001; 83690; 83735; 85025; 96360; G0378; J1885; J2405

== ENCOUNTER → 2024-02-28 | Outpatient (CLI) | payer MEDICARE, OTHER ==
[~2024-02-28] MED LIST changes: +ALPR0.255 PO; +LOSA-534 PO; -LOSA-535 PO; +LOVA20TA4 PO; +SACU1TAB PO
== END | disposition home or self-care (01) ==
LOC: Rad HDHVI 11:19
PROVIDERS: ATTEND Internal Medicine Cardiovascular Disease
DX: R05.9 Cough, unspecified (principal)
CPT/HCPCS: 71046

== ENCOUNTER → 2024-08-06 | Outpatient (CLI) | payer MEDICARE, OTHER ==
[2024-08-06 11:46] LABS: Basophils # (auto) 0 10 ^3/uL (0-0.2); Basophils % (auto) 0.5 % (0.0-2.0); Eosinophils # (auto) 0 10 ^3/uL (0-0.8); Eosinophils % (auto) 0.3 % (0.0-7.0); Hematocrit 45.9 % (36.0-46.0); Hemoglobin 15.1 g/dL (12.2-16.2); Lymphocytes # (auto) 1.2 10 ^3/uL (0.4-5.4); Lymphocytes % (auto) 26.3 % (10.0-50.0); Mean Corpuscular Hemoglobin 29.8 pg (28.0-32.0); Mean Corpuscular Hgb Conc. 32.8 g/dL (32.0-36.0); Monocytes # (auto) 0.2 10 ^3/uL (0-1.3); Monocytes % (auto) 4.5 % (0.0-12.0); Neutrophils % (auto) 68.4 % (37.0-80.0); Nucleated Red Blood Cells % 0.2 %; Platelet Count (auto) 202 10^3/uL (140-450); Red Blood Cells 5.05 10^6/uL (4.0-5.20); Red Cell Distribution Width 14.5 % (11.8-14.3); White Blood Cell 4.4 10^3/uL (4.4-10.8)
[2024-08-06 11:49] LABS: Urine Blood TRACE /uL (Negative); Urine Clarity Clear (Clear); Urine Color Yellow (Yellow); Urine Protein, UAD Negative (Negative); Urine Specific Gravity 1.019 (1.001-1.035); Urine Urobilinogen Normal (Negative); Urine pH 6.5 (5.0-9.0)
[2024-08-06 12:39] LABS: Triglycerides 87 mg/dL (< 150)
[2024-08-06 12:40] LABS: Alanine Aminotransferase 11 U/L (7-40); Albumin 4.5 g/dL (3.2-4.8); Alkaline Phosphatase 57 U/L (46-116); Anion Gap 5 (5-15); Aspartate Aminotransferase 15 U/L (13-40); BUN/Creatinine Ratio 10.4 (10.0-20.0); Bilirubin, Direct 0.2 mg/dL (<0.3); Bilirubin, Total 0.8 mg/dL (0.2-1.0); Blood Urea Nitrogen 8 mg/dL (9-23); Carbon Dioxide 29 mmol/L (20-31); Chloride 108 mmol/L (98-107); Cholesterol 168 mg/dL (< 200); Glucose 100 mg/dL (74-106); HDL Cholesterol 75 mg/dL (40-59); LDL Cholesterol 73 mg/dL (< 100); Potassium 3.8 mmol/L (3.5-5.1); Sodium 142 mmol/L (136-145)
[2024-08-06 12:41] LABS: Total Protein 6.6 g/dL (5.7-8.2)
== END | disposition home or self-care (01) ==
LOC: LAB 11:18
PROVIDERS: ATTEND Internal Medicine Cardiovascular Disease
DX: I10 Essential (primary) hypertension (principal); E11.9 Type 2 diabetes mellitus without complications; E55.9 Vitamin D deficiency, unspecified; D64.9 Anemia, unspecified; R00.2 Palpitations
CPT/HCPCS: 36415; 80048; 80061; 80076; 81003; 83036; 84443; 85025

== ENCOUNTER → 2024-08-06 | Outpatient (CLI) | payer MEDICARE, OTHER | END | disposition home or self-care (01) | LOC: Rad HDHVI 14:52 | PROVIDERS: ATTEND Internal Medicine Cardiovascular Disease | DX: I11.0 Hypertensive heart disease with heart failure (principal); I50.33 Acute on chronic diastolic (congestive) heart failure | CPT/HCPCS: 93306 ==

== ENCOUNTER → 2024-08-10 | Outpatient (CLI) | payer MEDICARE, OTHER ==
[~2024-08-10] VITALS: Ht 165.1 cm; Wt 96.6 kg
--- NOTE | 2024-08-18 13:34 | DVHSR ---
APPROVED REPORT Exam: Nuclear Stress Test Indication: Screening for CAD Ht: 5 ft 5 in Wt: 213 lbs BSA: 2.03 m2 HR: 77 bpm BP: 160/90 mmHg BMI: 35.44 Rhythm: NSR Medical History Medical History: HTN, Hypercholesterolemia, Diabetes, Smoking, SOB, Palpitaitons, CHF Medications: Ozempic, Vit D, Zyrtec, Clonidine, Biotin, Lovastatin, Xanax, Losartan, Dicyclomine, Olivia ztri Allergies: Penicillin, Amoxicillin Cardiac Risk Factors: Family Hx CAD Stress Test Details Stress Test: Exercise stress testing was performed using a Azeem protocol. HR Resting HR: 77 bpmMax Heart Rate (APMHR): 150.088640 bpm Max HR Achieved: 131 bpmTarget HR (85% APMHR): 127.798239 bpm % of APMHR: 87.33 Recovery HR: 82 bpm HR response to stress: Accelerated BP Resting BP: 160/90 mmHg Max BP: 168/90 mmHg Recovery BP: 157/78 mmHg BP response to stress: Resting hypertension- appropriate response. ECG Resting ECG: Sinus Rhythm Stress ECG: Sinus Tachycardia Arrhythmia: None Recovery ECG: Sinus Rhythm Clinical Reason for Termination: Target HR achieved Stress Symptoms: None Exercise duration: 3 min 25 sec Exercise capacity: 4.6 METs Stress ECG Conclusion EF >55% NON ISCHEMIC CLINICAL RESPONSE NON ISCHEMIC ECG RESPONSE LESS THAN 10% LIKELIHOOD FOR STRESS INDUCED ISCHEMIA NM EXAM: Myocardial Perfusion REST/STRESS Imaging Protocol: Rest Tc-99m/Stress Tc-99m 1 day Resting Data Rest SPECT myocardial perfusion imaging was performed in supine position 30 minutes following the int ravenous injection of 10.71 mCi of Tc-99m Sestamibi. Time of rest injection: 1307 Time of rest imagin Administration Route: IV Administration Site: Left AC Exercise Stress At peak stress, the patient was injected intravenously with 32.9 mCi of Tc-99m Sestamibi. Time of stress injection: 1357 Time of stress imagin Administration Route: IV Administration Site: Left AC Heart Rate at time of stress injection: 130 bpm. Patient continued to exercise for 1 minute(s). Gated Stress SPECT was performed 15 minutes after stress injection. The images were gated to evaluate regional wall motion and calculate left ventricular ejection fracti on. Comments Cardiolite injection at 2 minutes, 24 seconds into test. Study Data Post stress, the left ventricular ejection was >55%.. Nuclear Conclusion EF >55% NON ISCHEMIC CLINICAL RESPONSE NON ISCHEMIC ECG RESPONSE LESS THAN 10% LIKELIHOOD FOR STRESS INDUCED ISCHEMIA
== END | disposition home or self-care (01) ==
LOC: Rad HDHVI 12:40
PROVIDERS: ATTEND Internal Medicine Cardiovascular Disease
DX: I11.0 Hypertensive heart disease with heart failure (principal); I50.33 Acute on chronic diastolic (congestive) heart failure; R00.2 Palpitations; E11.21 Type 2 diabetes mellitus with diabetic nephropathy; U07.1 COVID-19; E11.40 Type 2 diabetes mellitus with diabetic neuropathy, unspecified; F17.210 Nicotine dependence, cigarettes, uncomplicated; E78.00 Pure hypercholesterolemia, unspecified; R06.02 Shortness of breath; Z82.49 Family history of ischemic heart disease and other diseases of the circulatory system
CPT/HCPCS: 78452; 93017; 96374; A9500

== ENCOUNTER 2025-07-01 09:51 | Outpatient (CLI) | payer MEDICARE, OTHER ==
[2025-07-01 10:51] LABS: Hematocrit 44.7 % (36.0-46.0); Hemoglobin 14.8 g/dL (12.2-16.2); Mean Corpuscular Hemoglobin 29.1 pg (28.0-32.0); Mean Corpuscular Volume 88.3 fL (80.0-100.0); Nucleated Red Blood Cells % 0.1 %
[2025-07-01 11:18] LABS: Alanine Aminotransferase 27 U/L (7-40); Alkaline Phosphatase 71 U/L (46-116); Anion Gap 8 (5-15); BUN/Creatinine Ratio 10.0 (10.0-20.0); Blood Urea Nitrogen 7 mg/dL (9-23); Calcium 9.5 mg/dL (8.7-10.4); Carbon Dioxide 28 mmol/L (20-31); Chloride 108 mmol/L (98-107); Glucose 92 mg/dL (74-106); Potassium 4.2 mmol/L (3.5-5.1); Sodium 144 mmol/L (136-145); Total Protein 6.8 g/dL (5.7-8.2); Triglycerides 50 mg/dL (< 150)
[2025-07-01 11:19] LABS: Albumin 4.4 g/dL (3.2-4.8); Bilirubin, Direct 0.2 mg/dL (<0.3); Bilirubin, Total 0.7 mg/dL (0.2-1.0); Cholesterol 140 mg/dL (< 200); HDL Cholesterol 58 mg/dL (40-59)
[2025-07-01 11:54] LABS: Urine Protein, UAD Negative (Negative)
== END 2025-07-01 17:00 | disposition home or self-care (01) ==
LOC: LAB 09:51
PROVIDERS: ATTEND Internal Medicine Cardiovascular Disease
DX: I10 Essential (primary) hypertension (principal); E11.9 Type 2 diabetes mellitus without complications; E55.9 Vitamin D deficiency, unspecified; D64.9 Anemia, unspecified; R00.2 Palpitations
CPT/HCPCS: 36415; 80048; 80061; 80076; 81003; 83036; 84443; 85025